=== PATIENT | female | born 1950 | race Two or more races ===

== ENCOUNTER 2023-04-05 10:34 | Outpatient (CLI) | payer OTHER | END 2023-04-05 10:39 | disposition home or self-care (01) | LOC: RAD 10:34 | PROVIDERS: ATTEND Physical Medicine & Rehabilitation Hospice and Palliative Medicine | DX: M25.561 Pain in right knee (principal); M17.11 Unilateral primary osteoarthritis, right knee; S76.311A Strain of muscle, fascia and tendon of the posterior muscle group at thigh level, right thigh, initial encounter ==